=== PATIENT | female | born 1960 | race Two or more races ===

== ENCOUNTER 2020-02-14 05:50 | Day surgery (SDC) | payer OTHER | END 2020-02-14 10:45 | disposition home or self-care (01) | LOC: AMB-ENDOS 05:50 | PROVIDERS: ATTEND Surgery | DX: D12.5 Benign neoplasm of sigmoid colon (principal) ==

== ENCOUNTER 2020-12-11 08:40 | Outpatient (CLI) | payer OTHER | END 2020-12-11 09:00 | disposition home or self-care (01) | LOC: RAD 08:40 | PROVIDERS: ATTEND Surgery | DX: K56.49 Other impaction of intestine (principal); K66.0 Peritoneal adhesions (postprocedural) (postinfection); Z86.010 Personal history of colon polyps ==

== ENCOUNTER 2021-02-02 10:45 | Inpatient (IN) | payer OTHER ==
[~2021-02-02] VITALS: Ht 160 cm; Wt 69.4 kg
[2021-02-02] MEDS ORDERED: METFORMIN HCL500 M3 PO (13:04)
[2021-02-02] MEDS ORDERED: SYNTHROID75 MCG PO (13:04)
[2021-02-02] MEDS ORDERED: TOPROL XL50 M1 PO (13:04)
[2021-02-12] MEDS ORDERED: HYOSCYAMINE0.125 M1 SL (08:30)
[2021-02-12] MEDS ORDERED: NEURONTIN300 MG PO (08:30)
[2021-02-12] MEDS ORDERED: ULTRAM50 MG PO (08:31)
[2021-02-12] MEDS ORDERED: INTESTINEX680 M1 PO (08:31)
[2021-02-12] MEDS ORDERED: KETO10TA2 PO (08:31)
== END 2021-02-12 09:41 | disposition home or self-care (01) | DRG 331 ==
LOC: O/R 02-09 06:49 → SURH 02-09 06:49 → SURG 02-09 15:48 → SURH 02-09 16:32
PROVIDERS: ADMIT Surgery; ATTEND Surgery
PROC: 0DBN4ZZ Excision of Sigmoid Colon, Percutaneous Endoscopic Approach (ICD-10-PCS; 2021-02-09)
PROC: 0DJD8ZZ Inspection of Lower Intestinal Tract, Via Natural or Artificial Opening Endoscopic (ICD-10-PCS; 2021-02-09)
PROC: 3E0F7SF Introduction of Other Gas into Respiratory Tract, Via Natural or Artificial Opening (ICD-10-PCS; 2021-02-09)
PROC: 0DBP4ZZ Excision of Rectum, Percutaneous Endoscopic Approach (ICD-10-PCS; principal; 2021-02-09 16:45)
DX: D12.5 Benign neoplasm of sigmoid colon (principal); K66.0 Peritoneal adhesions (postprocedural) (postinfection); K59.02 Outlet dysfunction constipation